=== PATIENT | male | born 1990 | race Caucasian/White ===

== ENCOUNTER 2017-04-14 08:42 | Day surgery (SDC) | payer OTHER ==
[2017-04-13 11:23] VITALS: BMI 31.7
[2017-04-14 08:59] VITALS: TEMP 98.7
[2017-04-14] MEDS ORDERED: PROPOFOL 20 ML ONE ×2 (10:36)
[2017-04-14] MEDS ORDERED: LIDOCAINE HCL 1%, 10 MG/ML (20ML VIAL) ONE (10:41)
[2017-04-14] MEDS ORDERED: BUPIVACAINE HCL/PF 0.5% (5MG/ML) 10 ML VIAL ONE (10:41)
[2017-04-14] MEDS ORDERED: IOHEXOL 180 MG/1 ML ML IJ ONE (11:22)
[2017-04-14] MEDS ORDERED: LIDOCAINE 1% P/F 10 MG/ML VIAL INF ONE (11:22)
[2017-04-14] MEDS ORDERED: BUPIVACAINE HCL/PF 0.5% (5MG/ML) 10 ML VIAL IJ ONE (11:22)
[2017-04-14 14:37] VITALS: BP 120/54; PULSE 64
== END 2017-04-14 12:35 | disposition home or self-care (01) ==
LOC: JASU-SURG 08:42
PROVIDERS: ATTEND Physical Medicine & Rehabilitation
PROC: 3E0T33Z Introduction of Anti-inflammatory into Peripheral Nerves and Plexi, Percutaneous Approach (ICD-10-PCS; 2017-04-14)
PROC: 3E0T3BZ Introduction of Anesthetic Agent into Peripheral Nerves and Plexi, Percutaneous Approach (ICD-10-PCS; 2017-04-14)
PROC: B01BYZZ Fluoroscopy of Spinal Cord using Other Contrast (ICD-10-PCS; principal; 2017-04-14 10:00)
DX: M47.896 Other spondylosis, lumbar region (principal); M54.5 Low back pain
CPT/HCPCS: 76000-TC-FY